=== PATIENT | male | born 1965 | race African-American/Black ===

== ENCOUNTER 2022-05-05 22:41 | Emergency (ER) | payer MEDICAID ==
[~2022-05-05] VITALS: Ht 182.9 cm; Wt 94.8 kg
[2022-05-05 22:51] VITALS: BP_SYST 127
--- NOTE | 2022-05-05 22:58 | NUR ---
Patient triaged and placed in waiting room. VSS and patient appears in no acute distress at this time. Accompanied by , awaiting available bed, and MD Major notified of need for MSE.
--- NOTE | 2022-05-05 23:01 | NUR ---
Patient presents to ED from home and accompanied by with c/o left wrist pain and LAC on chin x1 day. Patient reports pain 6/10 at this time. Patient A/Ox4, VSS, ambulatory, resp even and unlabored. Patient states "I was going upstairs when I missed a step and landed on my chin and left hand." Nad noted at this time ER MD Major made aware.
--- NOTE | 2022-05-05 23:04 | NUR ---
Patient to ER bed 2 to gown for evaluation. Side rails up. Report given to Pedrito MORRIS(reg).
--- NOTE | 2022-05-05 23:06 | NUR ---
Pt to ED 2 with chin laceration. Addendum: 05/05/22 at 2307 by [id number] denies LOC . also c/o left wrist pain. pt has full ROm but has pain
--- NOTE | 2022-05-05 23:07 | NUR ---
ER at bedside examining patient.
[2022-05-05] MEDS ORDERED: BACITRACIN 1 GM OINT TP ONE (23:30)
--- NOTE | 2022-05-06 02:01 | NUR ---
Patient given written and verbal discharge instructions and verbalizes understanding. ER MD discussed with patient the results and treatment provided. Patient in stable condition. ID arm band removed. nO Rx of given. Patient educated on pain management and to follow up with PMD. Pain Scale 0/10. Opportunity for questions provided and answered. Medication side effect fact sheet provided.
[2022-05-06 02:03] VITALS: BP_SYST 123
== END 2022-05-06 02:03 | disposition home or self-care (01) ==
LOC: SED 22:41
DX: S62.112A Displaced fracture of triquetrum [cuneiform] bone, left wrist, initial encounter for closed fracture (principal); S01.81XA Laceration without foreign body of other part of head, initial encounter; S20.212A Contusion of left front wall of thorax, initial encounter; Z79.899 Other long term (current) drug therapy; W10.9XXA Fall (on) (from) unspecified stairs and steps, initial encounter; Y93.89 Activity, other specified; Y92.89 Other specified places as the place of occurrence of the external cause; Y99.8 Other external cause status
CPT/HCPCS: 99283

== ENCOUNTER 2022-05-13 11:04 | Emergency (ER) | payer MEDICAID ==
[~2022-05-13] VITALS: Ht 185.4 cm; Wt 68.0 kg
[2022-05-13 11:22] VITALS: BP_SYST 145
--- NOTE | 2022-05-13 12:15 | NUR ---
PATIENT AMBULATORY TO ER FOR SUTURE REMOVAL AND D/C HOME WITH INSTRUCTION.
--- NOTE | 2022-05-13 12:16 | NUR ---
Patient given written and verbal discharge instructions and verbalizes understanding. ER MD discussed with patient the results and treatment provided. Patient in stable condition. ID arm band removed. IV catheter removed intact and dressing applied, no active bleeding. Rx of given. Patient educated on pain management and to follow up with PMD. Pain Scale . Opportunity for questions provided and answered. Medication side effect fact sheet provided.
== END 2022-05-13 12:16 | disposition home or self-care (01) ==
LOC: SED 11:04
DX: Z48.01 Encounter for change or removal of surgical wound dressing (principal); Z79.899 Other long term (current) drug therapy
CPT/HCPCS: 99281